=== PATIENT | male | born 1985 | race Caucasian/White ===

== ENCOUNTER 2016-10-10 12:23 | Emergency (ER) | payer MEDICAID | END 2016-10-10 16:36 | disposition home or self-care (01) | LOC: EDBD 12:23 → D.ER 12:23 | DX: S20.412A Abrasion of left back wall of thorax, initial encounter (principal); Y93.55 Activity, bike riding; Y93.89 Activity, other specified; Y92.89 Other specified places as the place of occurrence of the external cause ==

== ENCOUNTER → 2016-12-20 | Emergency (ER) | payer MEDICAID | END | disposition home or self-care (01) | LOC: D.ER 10:06 | DX: K61.1 Rectal abscess (principal) ==

== ENCOUNTER 2016-12-23 07:42 | Emergency (ER) | payer MEDICAID | END 2016-12-23 11:19 | disposition home or self-care (01) | LOC: D.ER 07:42 | DX: L02.31 Cutaneous abscess of buttock (principal) ==

== ENCOUNTER 2016-12-27 08:40 | Emergency (ER) | payer MEDICAID | END 2016-12-27 09:22 | disposition home or self-care (01) | LOC: D.ER 08:40 | DX: L02.31 Cutaneous abscess of buttock (principal) ==

== ENCOUNTER 2017-04-30 15:22 | Emergency (ER) | payer MEDICAID ==
[2017-04-30 16:33] LABS: BASOPHILS 0.2 % (0-2); EOSINOPHILS 1.2 % (0-7); HEMATOCRIT 41.3 % (42.0-54.0); HEMOGLOBIN 14.2 g/dL (13.5-17.5); LYMPHOCYTES 25.7 % (15-50); MCH 32.4 pg (26.0-34.0); MCHC 34.4 g/dL (31.0-37.0); MCV 94.3 fL (80.0-100.0); MEAN PLATELET VOLUME 10.1 fL (7.4-10.4); MONOCYTES 14.3 % (2-11); NEUTROPHILS 58.6 % (40-80); PLATELET COUNT 159 10x3/uL (130-400); RBC 4.38 10x6/uL (4.20-6.10); RDW 12.9 % (11.5-14.5); WBC 4.2 10x3/uL (4.8-10.8)
[2017-04-30 16:54] LABS: ALBUMIN 2.9 g/dL (3.4-5.0); ALKALINE PHOSPHATASE 55 U/L (46-116); ALT (SGPT) 20 U/L (10-68); BILIRUBIN - TOTAL 0.12 mg/dL (0.2-1.3); CALC OSMOLALITY 273 mosm/kg (275-300); CALCIUM 8.6 mg/dL (8.5-10.1); CARBON DIOXIDE 29.6 mmol/L (21.0-32.0); CHLORIDE - SERUM 101 mmol/L (98-107); CREATININE - SERUM 0.9 mg/dL (0.6-1.3); GLUCOSE 123 mg/dL (74-106); POTASSIUM - SERUM 3.6 mmol/L (3.5-5.1); PROTEIN - SERUM 6.7 g/dL (6.4-8.2); SODIUM 137 mmol/L (136-145); UREA NITROGEN 11 mg/dL (7-18); eGFR NON AFRICAN AMERICAN > 90 mL/min (90-120)
== END 2017-04-30 18:00 | disposition home or self-care (01) ==
LOC: D.ER 15:22
PROVIDERS: Emergency Medicine
DX: J11.1 Influenza due to unidentified influenza virus with other respiratory manifestations (principal)

== ENCOUNTER 2018-02-05 21:04 | Emergency (ER) | payer SELFPAY ==
[~2018-02-05] VITALS: Ht 165.1 cm; Wt 68.2 kg
[2018-02-05 21:07] VITALS: Ht 165.1 cm; Wt 68.2 kg
[2018-02-05 21:50] LABS: BASOPHILS 0.4 % (0-2); EOSINOPHILS 4.5 % (0-7); HEMATOCRIT 40.6 % (42.0-54.0); HEMOGLOBIN 14.2 g/dL (13.5-17.5); IMMATURE GRANULOCYTES 0.2 % (0-5); LYMPHOCYTES 28.2 % (15-50); MCH 32.8 pg (26.0-34.0); MCV 93.8 fL (80.0-100.0); MEAN PLATELET VOLUME 9.6 fL (7.4-10.4); MONOCYTES 12.6 % (2-11); NEUTROPHILS 54.1 % (40-80); RBC 4.33 10x6/uL (4.20-6.10); RDW 12.4 % (11.5-14.5); WBC 8.2 10x3/uL (4.8-10.8)
[2018-02-05 21:56] LABS: PLATELET COUNT 217 10x3/uL (130-400)
[2018-02-05 22:00] LABS: APTT 26.2 SECONDS (22.8-39.4); INR 0.93 (0.85-1.17); PROTIME 12.1 SECONDS (11.6-15.0)
[2018-02-05 22:01] LABS: D-DIMER-QUANTITATIVE < 0.27 ug/mLFEU (0.20-0.54)
[2018-02-05 22:02] LABS: ALBUMIN 3.5 g/dL (3.4-5.0); ALKALINE PHOSPHATASE 62 U/L (46-116); ALT (SGPT) 43 U/L (10-68); CALC OSMOLALITY 283 mosm/kg (275-300); CALCIUM 8.6 mg/dL (8.5-10.1); CHLORIDE - SERUM 106 mmol/L (98-107); CREATININE - SERUM 0.8 mg/dL (0.6-1.3); GLUCOSE 98 mg/dL (74-106); POTASSIUM - SERUM 4.7 mmol/L (3.5-5.1); SODIUM 142 mmol/L (136-145); UREA NITROGEN 15 mg/dL (7-18); eGFR NON AFRICAN AMERICAN > 90 mL/min (90-120)
[2018-02-05 22:14] LABS: CKMB 8.4 U/L (0.0-3.6); CREATINE KINASE 417 UL (21-232); PRO BNP 60 pg/mL (0-125); TROPONIN-I < 0.017 ng/mL (0.000-0.060)
[2018-02-05] MEDS ORDERED: TORADOL10 MG PO (22:51)
[2018-02-05 23:29] VITALS: BP 136/87
== END 2018-02-05 23:30 | disposition home or self-care (01) ==
LOC: D.ER 21:04
PROVIDERS: Emergency Medicine
DX: M54.6 Pain in thoracic spine (principal); R07.81 Pleurodynia; F17.200 Nicotine dependence, unspecified, uncomplicated